=== PATIENT | male | born 1995 | race Two or more races ===

== ENCOUNTER 2024-03-14 11:28 | Emergency (ER) | payer OTHER ==
[~2024-03-14] VITALS: Ht 167.6 cm; Wt 68.0 kg
[2024-03-14] MEDS ORDERED: 0.9 % SODIUM CHLORIDE 1,000 ML IV ONE (12:00)
[2024-03-14] MEDS ORDERED: ONDANSETRON HCL 2 MG/ML VIAL IV ONE (12:00)
[2024-03-14] MEDS ORDERED: FAMOtidine 10 MG/ML (4ML VIAL) IV ONE (12:00)
[2024-03-14] MEDS ORDERED: FAMOTIDINE/PF 20 MG/2 ML VIAL ONE (12:11)
[2024-03-14] MEDS ORDERED: ONDANSETRON HCL 2 MG/ML VIAL ONE (12:11)
[2024-03-14 12:31] LABS: HEMATOCRIT 46.5 % (39.0-48.0); HEMOGLOBIN 16.1 g/dL (13-16.00); MEAN CELL VOLUME 88.6 fL (80.0-100.00); MEAN CORPUSCULAR HEMOGLOBIN 30.7 pg (27.00-32.0); MEAN CORPUSCULAR HGB CONC 34.6 g/dl (32.0-36.0); PLATELET COUNT 220 K/uL (150-450); RED BLOOD COUNT 5.25 M/uL (4.00-6.00)
[2024-03-14 13:09] LABS: ALBUMIN 4.2 gm/dL (3.4-5.0); BILIRUBIN TOTAL 1.03 mg/dL (0.3-1.2); CALCIUM 8.5 mg/dL (8.5-10.1); CREATININE SERUM 1.03 mg/dL (0.70-1.30); GFR 85.38; GLOBULINA 3.5 G/DL (2.4-3.5); POTASSIUM 3.42 mEq/L (3.5-5.1); TOTAL PROTEIN 7.7 gm/dL (6.4-8.2)
[2024-03-14] MEDS ORDERED: PEPCID AC20 MG PO (14:27)
[2024-03-14] MEDS ORDERED: ZOFRAN8 MG PO (14:27)
[2024-03-14] MEDS ORDERED: METRONIDAZOLE500 MG PO (14:27)
== END 2024-03-14 14:36 | disposition home or self-care (01) ==
LOC: ER 11:30
PROVIDERS: General Practice
DX: K52.9 Noninfective gastroenteritis and colitis, unspecified (principal); Z20.822 Contact with and (suspected) exposure to COVID-19

== ENCOUNTER 2024-11-09 15:14 | Emergency (ER) | payer OTHER ==
[~2024-11-09] VITALS: Ht 170.2 cm; Wt 68.0 kg
[~2024-11-09 15:14] MED LIST: METRONIDAZOLE500 MG PO; PEPCID AC20 MG PO; ZOFRAN8 MG PO
[2024-11-09] MEDS ORDERED: DICLOFENAC SODI75 MG PO (17:44)
== END 2024-11-09 17:54 | disposition home or self-care (01) ==
LOC: ER 15:15
DX: G89.11 Acute pain due to trauma (principal); M54.2 Cervicalgia; M54.9 Dorsalgia, unspecified